=== PATIENT | female | born 1970 | race Caucasian/White ===

== ENCOUNTER 2025-07-08 13:08 | Emergency (ER) | payer OTHER ==
[~2025-07-08] VITALS: Ht 165.1 cm; Wt 64.0 kg
[2025-07-08 13:11] VITALS: O2SAT 99
[2025-07-08] MEDS: VISCOUS LIDOCAINE 2% 15 ML UDC MM ONE (13:37)
[2025-07-08] MEDS: MAGNESIUM/ALUMINUM HYDROXIDE/SIMETHICONE 30ML UDC PO ONE (13:37)
[2025-07-08] MEDS: FAMOTIDINE 20MG TABLET PO ONE (13:38)
[2025-07-08] MEDS: ONDANSETRON 4MG ODT PO ONE (13:38)
[2025-07-08 15:11] LABS: BASOPHILS % 0.5 % (0.0-2.0); EOSINOPHILS % 0.2 % (0.0-5.0); HEMATOCRIT. 41.3 % (36.0-48.0); HEMOGLOBIN. 13.8 g/dL (12.0-16.0); LYMPHOCYTES % 15.1 % (20.0-50.0); MEAN PLATELET VOLUME 9.6 fl (7.4-10.4); MONOCYTES % 4.5 % (2.0-8.0); NEUTROPHILS % 79.7 % (40.0-76.0); PLATELET 213 x1000/uL (130-400); RED BLOOD CELL COUNT 4.67 mill/uL (4.2-5.4); RED CELL DISTRIBUTION WIDTH 13.6 % (11.6-14.6)
[2025-07-08 15:23] LABS: CREATININE 0.7 mg/dL (0.6-1.0)
[2025-07-08 15:24] LABS: UREA NITROGEN BLOOD 10 mg/dL (9-23)
[2025-07-08 15:25] LABS: ASPARTATE AMINOTRANSFERASE 26 IU/L (<34); BILIRUBIN DIRECT < 0.1 mg/dL (<=3.0); TROPONIN I HIGH SENSITIVITY < 4 ng/L (3.0-34)
[2025-07-08 15:26] LABS: BILIRUBIN TOTAL 0.4 mg/dL (0.1-1.0); PROTEIN TOTAL 7.4 g/dL (6.0-8.3)
[2025-07-08] MEDS ORDERED: MAG355OR21 MT (18:00)
[2025-07-08] MEDS ORDERED: FAMO-135 MT (18:00)
[2025-07-08 18:18] VITALS: BP 121/85; PULSE 77; RESP 18; TEMP 37.1; O2SAT 100
== END 2025-07-08 18:19 | disposition home or self-care (01) ==
LOC: ER 13:24
DX: R10.13 Epigastric pain (principal); M79.7 Fibromyalgia; E11.9 Type 2 diabetes mellitus without complications; Z88.5 Allergy status to narcotic agent; Z79.899 Other long term (current) drug therapy
CPT/HCPCS: 99285; 76705; 71045; 80076; 80048; 83690; 85025; 84484; 36415; 93005; Q0162